=== PATIENT | male | born 1970 | race Caucasian/White ===

== ENCOUNTER 2024-03-10 03:03 | Outpatient (CLI) | payer BC, SELFPAY ==
[2024-03-10 13:27] LABS: ALT 32 U/L (16-63); AST 15 U/L (15-37); Albumin 3.9 g/dL (3.4-5.0); Alkaline Phosphatase 49 U/L (46-116); Anion Gap 6.4 mmol/L (3-11); BUN 13 mg/dL (7-18); CO2 28.6 mmol/L (21.0-32.0); CREATININE 1.1 mg/dL (0.70-1.30); Calcium 9.5 mg/dL (8.5-10.1); Calculated LDL 99 mg/dL (<100); Chloride 106 mmol/L (98-107); Cholesterol 199 mg/dL (<200); Estimated GFR 80.27 (mL/min/1.73m2); Glucose 99 mg/dL (74-106); HDL Cholesterol 75 mg/dL (40-60); Potassium 4.2 mmol/L (3.5-5.1); Sodium 141 mmol/L (136-145); Total Protein 8.1 g/dL (6.4-8.2); Triglyceride 128 mg/dL (<150)
[2024-03-11 10:40] LABS: HIV-1/2 Ag & Ab Screen Negative (Negative)
[2024-03-11 10:56] LABS: Hepatitis C Ab w Rflx HCV PCR Negative (Negative)
== END 2024-03-10 03:04 | disposition home or self-care (01) ==
LOC: LOS 03:04
PROVIDERS: PCP Nurse Practitioner Family; Visit Provider Nurse Practitioner Family
DX: Z00.00 Encounter for general adult medical examination without abnormal findings (principal); R03.0 Elevated blood-pressure reading, without diagnosis of hypertension; Z13.220 Encounter for screening for lipoid disorders; Z11.59 Encounter for screening for other viral diseases
CPT/HCPCS: 36415; 80053; 80061; 86803; 87389

== ENCOUNTER 2024-04-21 08:24 | Day surgery (SDC) | payer BC, SELFPAY ==
--- NOTE | 2024-04-20 07:23 | W.PM.DSUDISC ---
Date of service: 04/21/24 Discharge Plan Disposition Patient Disposition: Home Condition: Good Discharge Details Reason For Visit: Screening colonoscopy Attending Provider: Darrion Lr Primary Care Provider: Robinson Benitez Home Meds and New Rx's Prescriptions: Discontinued bisacodyl [Dulcolax (bisacodyl)] 5 mg tablet,delayed release (DR/EC) 5 mg PO ONCE Qty: 4 0RF Rx Instructions: Take per colonoscopy instructions provided by ordering providers office polyethylene glycol 3350 17 gram/dose powder 17 g PO ONCE Qty: 238 0RF Rx Instructions: Take per colonoscopy instructions provided by ordering providers office Discharge Instructions Instructions: Colon polyps, Diverticulosis Additional Instructions: Andrey, I hope you are comfortable during the procedure today. Everything went very smoothly. Your prep was excellent, negative everything fine. I did find 2 polyps today. 1 of these was in the first part of the large intestine, which is also known as the cecum, just adjacent to the appendix. This is quite small, and was removed easily. The other polyp was even smaller, located about 45 cm up from the anus. This, might not even be a true polyp. Regardless, I removed it, and with the first polyp, I will send it off for testing. Polyps to come in different varieties, and that information is used to help guide the timing of the next colonoscopy. Incidentally, he also have quite a bit of diverticulosis. Diverticula are weak spots in the muscular part of the colon wall that causes inside lining to pooch or pocket outwards. These can get infected or inflamed during episodes that we refer to as diverticulitis. Hopefully years never bother you. I will attach a little bit of information here about colon polyps as well as diverticular disease. If you have any questions at all, please do not hesitate to ask, otherwise my office will be in touch once the polyp report is available. 1. If tolerated, consume a soft, low fiber diet for 1-2 days. 2. Do not drive, drink alcohol, operate machinery, make critical decisions, or do activities that require coordination or balance for 24 hours. 3. Because air was put into your colon during the procedure, expelling air from your rectum (passing gas or farting) is normal. 4. You may not have a bowel movement for 1-3 days because of the colonoscopy prep. This is normal. 5. Go directly to the emergency room if you notice any of the following: Develop chills (warm to touch), or if you have a thermometer and your temperature is above 101 Difficulty breathing or difficultly swallowing Persistent vomiting Severe abdominal pain, other than gas cramps Severe chest pain Black, tarry stools Any bleeding ? exceeding one tablespoon 6. Call your physician if the site where your intravenous was started becomes red, swollen, painful, and warm to touch. 7. Your physician has reviewed your pre-procedure medications. Please continue to take those medications as previously ordered. You will be given specific information/education regarding any changes to your medications before leaving. Activity:: Activity as Tolerated Diet:: As Tolerated Discharge Orders Discharge Orders: Discharge Order (Routine); Ordered 04/20/24 Ordered By: Darrion Lr DS: Diagnosis Discharge Diagnosis (1) Encounter for screening colonoscopy: Status: Acute Asessment and Plan: Follow-up on polypectomy results
--- NOTE | 2024-04-20 07:24 | W.COLOREPORT ---
Date of service: 04/21/24 Time of Service: 10:16 Colonoscopy Report Date of procedure: 04/21/24 Pre-op diagnosis general: Screening colonoscopy Post-op diagnosis procedure note: other (Colon polyps, diverticulosis) Procedure: Colonoscopy with polypectomy Surgeon: Darrion Lr Anesthesia Type: General:No Airway Estimated blood loss (mL): 5 Pathology: other (0.25 cm flat polyp immediately adjacent to the appendix, 0.25 cm flat polyp at 45 cm) Complications: None Disposition: same day Indications: Andrey is a 53-year-old male who needs a screening colonoscopy Prep: Miralax/Dulcolax Procedure Start Time: 09:55 Procedure End Time: 10:09 Retraction Time: 9 Findings: Diverticulosis, 0.25 cm flat polyp immediately adjacent to the appendix, 0.25 cm flat polyp at 45 cm Procedure Description: After the induction of anesthesia, and with the patient in left lateral decubitus position, I began by performing an external anorectal exam.? Perineum and skin were normal, as was the anal verge.? There was no evidence of external hemorrhoids.? Next, I performed a digital rectal exam.? I did not appreciate any abnormal findings.? Next, I advanced a colonoscope into the rectal vault.? I performed retroflexion.? This appeared normal.? Using insufflation, I then advanced the colonoscope beyond the rectal folds and into the sigmoid colon before advancing towards the cecum.? There is sigmoid diverticulosis.? The scope was noted to be in the cecum by identification of the ileocecal valve and appendiceal orifice.? Immediately adjacent to the appendix was a 0.25 cm flat polyp. This was removed in piecemeal with cold forceps. There was minimal bleeding. I then began withdrawing the colonoscope using repeated irrigation as necessary for full evaluation of the colonic mucosa. I found another small polypoid area around 45 cm from the anal verge. This was less than 0.25 cm in its largest size. This may just be benign lymphoid aggregate, but to be safe, I did perform cold forcep polypectomy here as well. There was minimal bleeding at this site. ?Once the scope was withdrawn to the level of the rectum, great care was taken to examine portions of the rectal folds.? Finally, the scope was withdrawn and the patient was brought to the same-day surgery recovery unit as the anesthetic wore off. ?The findings and instructions were shared with the patient prior to discharge. [place] Bowel Prep [place] Bowel Prep Right Colon: 3 Left Colon: 3 Transverse Colon: 3 Total Score: 9
[2024-04-21 08:47] VITALS: BP 135/86; PULSE 90; RESP 20; TEMP 36.8; O2SAT 95
[2024-04-21] MEDS: Lactated Ringers 1,000 ML 80 ML IV (09:09)
--- NOTE | 2024-04-21 09:42 | W.ANESPRE ---
General Info Date of Service Date Performed: 04/21/24 Height: 5 ft 8 in Weight: 107.9 kg Body Mass Index (BMI): 36.1 Surgical Procedure: Operation Date: 04/21/24 09:50 Proposed Procedure Side Surgeon armin Lr MD Meds Allergies and Home Medications Allergies Allergy/AdvReac Type Severity Reaction Status Date / Time cat dander Allergy Itching Verified 04/21/24 08:43 No Known Drug Allergies Allergy Other (See Verified 04/21/24 08:43 Comment) Current Visit Medications: Current Medications Generic Name Dose Route Start Last Admin Trade Name Freq PRN Reason Stop Dose Admin Ringer's Solution 1,000 mls @ 80 mls/hr 04/21/24 08:15 04/21/24 09:09 IV 05/21/24 08:14 80 mls/hr INFUSION NICK Administration IV Miscellaneous Supplies 1 each 04/21/24 06:00 Iv Access IV 04/21/24 23:59 DIRECTED NICK Ondansetron HCl 4 mg 04/20/24 07:25 Ondansetron 4 Mg/2 Ml Vial IVP 05/20/24 07:24 Q4H PRN PRN Nausea / Vomiting Sodium Chloride 0 ml 04/21/24 06:00 Normal Saline Flush 10 Ml Syr IV 04/21/24 23:59 PRN PRN Sodium Chloride 0 ml 04/21/24 06:00 Normal Saline 10 Ml Vial IJ 04/21/24 23:59 DIRECTED PRN Sterile Water 0 ml 04/21/24 06:00 Water,Injection,Sterile 10 Ml Vial IJ 04/21/24 23:59 DIRECTED PRN PFSH Active Problems Active Problems: Problem Status Onset Code Encounter for screening colonoscopy Acute Z12.11 Seborrheic keratoses, inflamed Acute L82.0 Annual physical exam Acute Z00.00 Elevated blood pressure reading in office without diagnosis of hypertension Acute R03.0 Snoring Acute R06.83 Foot pain, right Acute M79.671 Surgical History Surgical History History of eye surgery per pt. states he had a piece of steel removed from his eye Tobacco Smoking/Tobacco Use Status: Never Passive smoking exposure: Yes Alcohol Alcohol Intake: current Alcohol intake frequency: a few times a week Alcohol type: hard liquor Substance Use Substance use: Never Substance use type: does not use Vital Signs and Lab Results Vital Signs Most Recent Vital Signs in EMR: Most Recent Vital Signs Temp Pulse Resp BP Pulse Ox 36.8 C 90 20 135/86 95 04/21/24 08:47 04/21/24 08:47 04/21/24 08:47 04/21/24 08:47 04/21/24 08:47 Lab Results Blood Type / Crossmatch: No Data to Display Complete Blood Count: No Data to Display Complete Metabolic Panel: No Data to Display Liver Function Panel: No Data to Display Coagulation Panel: No Data to Display Cardiac Panel: No Data to Display Arterial Blood Gas: No Data to Display Venous Blood Gas: No Data to Display Pancreas Panel: No Data to Display Thyroid Panel: No Data to Display Infectious Disease: No Data to Display Blood Cultures: No Data to Display Toxicology Panel: No Data to Display Anesthesia Assessment and Plan Anesthesia History Personal History: No History of Anesthesia Complications Family History: No Family History of Anesthesia Complications Exercise Tolerance Exercise Tolerance: Metabolic Equivalents>4 Pertinent Negatives Pertinent Negatives: No Symptoms of GERD Cardiac & Pulmonary Exam Cardiac Exam: Normal S1/S2 Heart Sounds Pulmonary Exam: Clear Bilateral Breath Sounds Implantable Cardiac Device Does patient have a Pacemaker or an ICD?: No Airway Exam Known Difficult Airway: No Mallampati Class: 2 Mouth Opening: Normal (> 3cm) Thyromental Distance: Greater than 3 cm Neck Range of Motion: Full ROM Neck Circumference: Normal Teeth Condition: Normal Dentition ASA Classification ASA Score: ASA 2 Emergency Case?: No NPO Status NPO Status: NPO Clears >2 hours, Solids >8 hours Anesthesia Plan Resuscitation Status: Full Code Anesthesia Technique: General Anesthesia Airway Planned: Natural Airway Monitors Used: Standard Monitors
[2024-04-21 09:43] VITALS: BMI 36.1
--- NOTE | 2024-04-21 10:00 | BOWEL_PTH ---
PATIENT: Andrey Galvez LOC: [place] U#:[id number] AGE/SX: 53/M ROOM: RE04/21/[address]: Darrion Lr MD : 1970 BED: DIS: 04/21/2024 SPEC #: [id number] RECD: 04/21/24 13:02 STATUS: DOTTIE REQ #: [id number] SHELBY: 04/21/24 10:[address]: Darrion Lr DEPT: Surgical Specimen RECD BY: Emiliana Eubanks ENTERED: 04/21/24 13:03 SP TYPE: Bowel OTHR DR: Robinson Chiu DNP Tissues: 1 - BIOPSY BOWEL 2 - BIOPSY BOWEL Procedures: GROSS AND MICRO LEVEL 4 Comments: [id number]
[2024-04-21 10:17] VITALS: BP 114/81; PULSE 88; RESP 16; TEMP 36.5; O2SAT 94
--- NOTE | 2024-04-21 10:21 | W.ANESPOSTOP ---
Postoperative Evaluation Date, Time and Location Date Performed: 04/21/24 Time Performed: 10:21 Patient Location: Day Surgery Unit Vital Signs Most Recent Imported Vital Signs: Most Recent Vital Signs Temp Pulse Resp BP Pulse Ox 36.8 C 90 20 135/86 95 04/21/24 08:47 04/21/24 08:47 04/21/24 08:47 04/21/24 08:47 04/21/24 08:47 Pain Score Most Recent Pain Score: Most Recent Pain Score Pain Level 0 04/21/24 08:47 Assessment Mental Status: Awake (Alert & Oriented to Patient Baseline) Airway and Respiratory Function: Patent airway with normal (patient baseline) respiratory exam Cardiovascular Function: Hemodynamically Stable Hydration Status: Adequately Hydrated Nausea & Vomiting: No Nausea or Vomiting Pain: Pt. Denies Any Pain Peripheral Nerve Block: Patient did not receive a nerve block
[2024-04-21 10:54] VITALS: BP 111/85; PULSE 76; RESP 18; TEMP 36.3; O2SAT 94
== END 2024-04-21 11:26 | disposition home or self-care (01) ==
LOC: SUR 08:24
PROVIDERS: PCP Nurse Practitioner Family; Visit Provider Surgery
PROC: 0DJD8ZZ Inspection of Lower Intestinal Tract, Via Natural or Artificial Opening Endoscopic (ICD-10-PCS; CPT 45378; principal; 2024-04-21 09:45)
DX: Z12.11 Encounter for screening for malignant neoplasm of colon (principal); D12.0 Benign neoplasm of cecum; K57.30 Diverticulosis of large intestine without perforation or abscess without bleeding; K63.89 Other specified diseases of intestine
CPT/HCPCS: 45380; 88305; J2704